=== PATIENT | female | born 1985 | race Caucasian/White ===

== ENCOUNTER 2020-04-29 21:22 | Emergency (ER) | payer OTHER, MEDICARE, SELFPAY ==
[2020-04-29 21:29] VITALS: BP 140/109; PULSE 118; RESP 20; TEMP 36.5; O2SAT 99
--- NOTE | 2020-04-29 22:17 | ED.GENADULT ---
HPI - General Adult General Chief complaint: Dental/Oral Stated complaint: tooth pain Time Seen by Provider: 04/29/20 21:55 History of Present Illness HPI narrative: Patient is a 34 y/o female complaining of dental pain. She states that her pain started 2 days when she broke her right upper molar. She took Tylenol and Ibuprofen, which did not help. She rates her pain as 8/10. Her pain radiates to right face. Related Data Allergies Allergy/AdvReac Type Severity Reaction Status Date / Time doxepin Allergy Rash Verified 04/29/20 21:37 Review of Systems Constitutional: Constitutional: Denies chills, Denies fever(s), Denies headache(s) and Denies weakness Eyes: Eyes: Denies blurry vision ENT: Reports dental pain, Reports facial pain, Denies headache(s) and Denies neck pain Cardiovascular: Cardiovascular: Denies chest pain and Denies dyspnea Respiratory: Respiratory: Denies cough and Denies dyspnea Gastrointestinal: Gastrointestinal: Denies abdominal pain, Denies diarrhea, Denies nausea and Denies vomiting Genitourinary: Genitourinary: Denies hematuria and Denies dysuria Musculoskeletal: Musculoskeletal: Denies back pain and Denies neck pain Neurologic: Denies headache(s) and Denies weakness [facility] Social History Social History Gender identity (if verbalized by the patient): Female Exam Const: General: no acute distress and well developed Orientation/consciousness: oriented to person, oriented to place, oriented to time and patient oriented x3 HENMT: Head: normocephalic Ears: external ears normal General nose exam: Normal external nose present Teeth and gingiva: abnormal dentition Eyes: General: appearance normal, both eyes and all related structures Conjunctivae: conjunctivae normal Neck: Neck: normal visual inspection and full ROM Chest: Chest palpation & inspection: normal inspection of the chest and no tenderness Resp: Effort & Inspection: normal respiratory effort Auscultation: clear to auscultation bilaterally Cardio: Rate: regular rate Rhythm: regular rhythm GI: GI Palp: No abdominal tenderness and Yes Soft to palpation Skin: General skin exam: normal color and turgor normal Neuro: General: oriented to person, oriented to place, oriented to time and patient oriented x3 Cognition (Neuro): normal cognition Extrem: General: normal to inspection, full ROM and no pedal edema Psych: Appearance: grossly normal Mental Status: mental status grossly normal Affect: normal affect Course Vital Signs Vital signs: Vital Signs Temperature 36.5 C 04/29/20 21:29 Pulse Rate 118 H 04/29/20 21:29 Respiratory Rate 04/29/20 21:29 Blood Pressure 140/109 H 04/29/20 21:29 Pulse Oximetry 99 04/29/20 21:29 Temperature 36.5 C 04/29/20 21:29 Pulse Rate 118 H 04/29/20 21:29 Respiratory Rate 04/29/20 21:29 Blood Pressure 140/109 H 04/29/20 21:29 Pulse Oximetry 99 04/29/20 21:29 Medical Decision Making Vital Signs Vital Signs: Vital Signs Temperature 36.5 C 04/29/20 21:29 Pulse Rate 118 H 04/29/20 21:29 Respiratory Rate 20 04/29/20 21:29 Blood Pressure 140/109 H 04/29/20 21:29 Pulse Oximetry 99 04/29/20 21:29 Temperature 36.5 C 04/29/20 21:29 Pulse Rate 118 H 04/29/20 21:29 Respiratory Rate 04/29/20 21:29 Blood Pressure 140/109 H 04/29/20 21:29 Pulse Oximetry 99 04/29/20 21:29 Discharge Plan Discharge Clinical Impression: Toothache Patient Disposition: Home, Self-Care Condition: Stable Instructions: Antibiotic Form, Toothache (ED) Prescriptions: New penicillin V potassium 500 mg tablet 500 mg PO QID Qty: 28 RF: 0 tramadol 50 mg tablet 50 mg PO Q6H PRN (Reason: pain) Qty: 20 RF: 0 Follow-up/Referrals: PHYSICIAN NOT ON STAFF,NONSTAFF [Non-Staff] - Stand Alone Forms: Work/School Release IP Discharge Date/Time: 04/29/20 22:26
== END 2020-04-29 22:26 | disposition home or self-care (01) ==
PROVIDERS: Emergency Provider Emergency Medicine
DX: K08.89 Other specified disorders of teeth and supporting structures (principal)
CPT/HCPCS: 99283